=== PATIENT | female | born 1995 | race Caucasian/White ===

== ENCOUNTER 2016-05-25 17:55 | Emergency (ER) ==
--- NOTE | 2016-05-25 19:01 | PROVIDER DOCUMENTATION ---
HPI-General Adult - General Chief Complaint: Fever Stated Complaint: FEVER, COUGH, UMAÑA Time Seen by Provider: 05/25/16 18:50 Source: patient Allergies/Adverse Reactions: Patient Allergies Allergy/AdvReac Type Severity Reaction Status Date / Time No Known Allergies Allergy Verified 04/16/16 18:59 Home Medications: Home Medication List Medication Instructions Recorded Confirmed Last Taken Type Amoxicillin [Amoxil] 500 mg PO BID #20 capsule 05/25/16 Unknown Rx - History of Present Illness -Gen Adult Nature of Presenting Problems: 21 y/o WF c/o body aches, sore throat and fever x 12 hours. States she coughed once today and vomited once today. denies abdominal pain, n/v/d. Subjective fevers, no pre-arrival treatment. Denies chance of Onset/Duration: reports: 4-6 hours ago Timing: reports: still present Modifying Factors: improves with: nothing. worse with: analgesics, antacids, breathing, cold/heat therapy, coughing, defecating, eating, exercise, immobilization, lying down, massage, movement, other medication, palpation, rest , urinating, vomiting Associated Symptoms: reports: cough, EENT symptoms, vomiting. denies: anxiety, arm pain, back/neck pain, chest pain, constipation, diaphoresis, diarrhea, dizziness, fatigue, fever/chills, genitourinary problems, headaches, heartburn, joint pain, loss of appetite, malaise, muscle aches, sinus congestion/drainage, nausea, rash, seizure, shortness of breath, sensory/motor loss, pain with inspiration, swelling/mass in abdomen, syncope, weakness, trouble walking Similar Symptoms Previously?: No Recently seen or treated by another doctor?: No Review of Systems - Adult - REVIEW OF SYSTEMS - ADULT Constitutional: reports: see HPI, chills, fever, fatique Eyes: reports: no symptoms reported. denies: blurred vision, double vision, eye pain Ears, Nose, Mouth & Throat: reports: see HPI, throat pain. denies: ear pain, sinus problem, nose pain Cardiovascular: reports: no symptoms reported. denies: irregular heart rate Respiratory: reports: see HPI, cough. denies: shortness of breath, wheezing Gastrointestinal: reports: see HPI, vomiting. denies: abdominal pain, diarrhea , nausea Genitourinary: reports: no symptoms reported. denies: dysuria, discharge, frequency, incontinence Musculoskeletal: reports: see HPI, muscle aches Integumentary: reports: no symptoms reported. denies: rash Neurological: reports: no symptoms reported. denies: headache/migraines Psychiatric: reports: no symptoms reported Endocrine: reports: no symptoms reported Hematologic/Lymphatic: reports: no symptoms reported Allergic/Immunologic: reports: no symptoms reported All Other Systems: Reviewed and Negative Past History - Adult - PAST MEDICAL HISTORY-ADULT Review of Records: reports: Old Records Reviewed, Nursing Assessment Review, Medications Reviewed, Social history reviewed & non-contributory. Major Childhood Illnesses: reports: denies history Cardiovascular: reports: denies history Respiratory: reports: denies history Gastrointestinal: reports: denies history Obstetrical/Gynecological: reports: denies history Genitourinary: reports: denies history Musculoskeletal: reports: denies history Neurological: reports: denies history Endocrine/Immune: reports: denies history Other Conditions: reports: denies history - PRIOR SURGERIES/PROCEDURES Surgical/Procedure History: reports: none - PRIOR HOSPITALIZATIONS Prior Hospitalizations: reports: none - IMMUNIZATION STATUS Childhood Immunizations: See Nurse Assessment Flu Vaccine: See Nurse Assessment - FAMILY HISTORY Family History: reviewed, not pertinent - SOCIAL HISTORY Smoking: less than 1 pack/day Provider spent 3-5 mins advising pt. on dangers of tobacco.: Discussed manners to quit use, and f/u contacts for add'l counseling. Substance Use: none/never Alcohol Use Frequency: never Living Situation: family Physical Exam-General - PHYSICAL EXAM-ADULT Initial Vital Signs Reviewed: Yes - CONSTITUTIONAL General Appearance: appears well, alert, no apparent distress - EYES Eyes: PERRL/EOMI, pink conjunctivae - HEAD, EARS, NOSE, MOUTH & THROAT HENMT: normocephalic/atraumatic, moist mucous membranes, normal ENT inspection, TMs normal, pharyngeal erythema, tonsillar exudate - NECK Neck: non-tender, full range of motion, supple, normal inspection, lymphadenopathy (anterior cervical adenopathy) - RESPIRATORY Respiratory: chest non-tender, lungs clear, normal breath sounds, no pleuratic chest pain, no respiratory distress, no accessory muscle use. negative: respiratory distress, decreased breath sounds, accessory muscle use, crackles, rales, rhonchi, wheezing - CARDIOVASCULAR Cardiovascular: normal peripheral pulses, regular rate, rhythm - MUSCULOSKELETAL Extremity: normal gait - SKIN Integumentary: normal color, normal turgor, warm/dry - NEUROLOGIC Neurologic: grossly normal, no motor/sensory deficits - PSYCHIATRIC Psych/Mental Status: normal mood/affect, normal thought content, normal thought process, oriented x 3 Progress - PLAN OF CARE/RESULTS Progress/Plan/Lab Results: Vital Signs Temp Pulse Resp BP Pulse Ox 05/25/16 18:07 100.8 F H 138 H 14 131/87 98 No Known Allergies Allergy (Verified 04/16/16 18:59) Amoxicillin [Amoxil] 500 mg PO BID #20 capsule 05/25/16 Orders Category Date Time Status DIRECT STREP Stat Lab 05/25/16 17:49 Completed Flu Swab [INFLUENZA SCREEN A/B] Stat Lab 05/25/16 17:49 Completed Departure - Departure Time of Disposition Order: 19:00 DIAGNOSIS: Pharyngitis Qualifiers: Pharyngitis/tonsillitis etiology: streptococcus Qualified Code(s): J02.0 - Streptococcal pharyngitis Disposition: HOME 01 Certified Medical Emergency: Emergent Condition: Stable Additional Instructions: Tylenol and motrin for pain and fever ED Follow Up Instructions: You have been treated by a care provider in the Emergency Department. These instructions are being provided to you so you can have an understanding of how to care for yourself upon discharge. Upon discharge from the Emergency Department, you are responsible for making arrangements for follow-up care by a physician of your choice. Take all prescribed medications as directed. Return to the Emergency Department immediately for any new or worsening symptoms. You may call the Physician Referral phone number at [phone] to obtain a list of Physicians who are taking new patients. Prescriptions: Amoxicillin [Amoxil] 500 mg PO BID #20 capsule Referrals: None,PCP [Primary Care Provider] - Attestation - Physician/ ED Attestation Patient care was provided by Advanced Practice Provider:: Yes Advanced Practice Provider:: Gay Roche Advanced Practice Provider documentation review:: The Mid-level provider documentation, treatment plan and medical decision making was reviewed by the physician who agrees with all treatment and medical decision making by the [facility].
[2016-05-25 19:30] VITALS: BP 133/73
== END 2016-05-25 19:35 | disposition home or self-care (01) ==
LOC: ED 17:55
DX: J02.0 Streptococcal pharyngitis (principal); R50.9 Fever, unspecified; R05 Cough; R51 Headache; R11.10 Vomiting, unspecified; R53.83 Other fatigue; M79.1 Myalgia; R59.0 Localized enlarged lymph nodes; F17.210 Nicotine dependence, cigarettes, uncomplicated; Z71.6 Tobacco abuse counseling
CPT/HCPCS: 87081; 87430; 87804